=== PATIENT | male | born 2005 | race African-American/Black ===

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

== ENCOUNTER 2025-07-23 15:42 | Emergency (ER) | payer OTHER, SELFPAY ==
--- OUTSIDE RECORDS SUMMARY | 2025-07-23 15:44 | XMS_ITS | Clinical Summary ---
Author Organization [facility] Address [address] [place] [id number] Care Team Providers Care Editorial Specialist Name Role Phone Escobar Ramsey MD Primary Care Provider Escobar Ramsey MD Unavailable [phone] Allergies Active Allergy Reactions Criticality Noted Date Comments Penicillins Rash Medium 06/18/2019 Medications No known medications Active Problems No known active problems Immunizations Immunization Administration Dates Next Due DTaP 01/06/2007 DTaP / Hep B / IPV 04/29/2006,03/05/2006, 006 DTaP / IPV 06/18/2011 H1N1 All Forms 11/08/2009 HPV9 06/22/2018,07/07/2017 Hep A, Ped Unspecified 05/17/2007,11/01/2006 Hep B, Adolescent or Pediatric 2005 HiB 01/06/2007, 6,03/05/2006,12/03 Influenza, Quadrivalent, Spl it, Preservative Free, Intramuscular 07/26/2018 Influenza, Split 10/03/2012,12/09/2010 Influenza, Trivalent, Preser vative Free, Intramuscular 10/24/2013 Influenza, Unspecified 11/15/2007 MMRV 12/09/2010,11/01/2006 Meningococcal Conjugate (Menveo) 07/07/2017 Pneumococcal Conjugate 7-Valent 11/01/20 06,04/29/2006,03/05/2006,12/03 Tdap 07/07/2017 Medical History Medical History Date Comments Asthma Family History Medical History Relation Name Comments No Known Problems Father No Known Problems Mother Relation Name Status Comments Father Mother Social History Tobacco Use Types Packs/Day Years Used Date Smoking Tobacco: Never Passive Smoke Exposure: Never Smokeless Tobacco: Never Tobacco Cessation:Counseling Given: Not Answered Sex and Gender Information Value Date Recorded Sex Assigned at Not on file Legal Sex Male 10:45 AM CDT Gender Identity Not on file Sexual Orientation Not on file Obstetrics History Growth Chart Information Age Height Weight Qqmxnt-rvy-jzmu th Percentile BMI Percentile Head Circum Head Circum Percentile Date 18 years 180.3 cm (5' 11) 68 kg (150 lb) 32.57%* 2023 * [facility] (Boys, 2-20 Years) Last Filed Vital Signs Vital Sign Reading Time Taken Comments Blood Pressure 136/84 03/06/2024 9:58 AM CDT Pulse 51 03/06/2024 9:58 AM CDT Temperature - - Respiratory Rate 12 03/06/2024 9:58 AM CDT Oxygen Saturation - - Inhaled Oxygen Concentration - - Weight 68 kg (150 lb) 03/06/2024 9:58 AM CDT Pt states Height 180.3 cm (5' 11) 03/06/2024 9:58 AM CDT Pt states Body Mass Index 20.92 03/06/2024 9:58 AM CDT Body Mass Index Percentile 32.57% 03/06/2024 9:5 8 AM CDT Growth Chart: [facility] [place] (Boys, 2-2 0 Years) Plan of Treatment Health Maintenance Due Date Last Done Comments Depression Screening 2005 Hepatitis C Screening 2005 Regular Well Visit/Exam 18-64 2023 Meningococcal B Vaccine (2 o f 2 - Bexsero SCDM 2-dose series) 01/27/2024 07/28/2023 Influenza Vaccine (#1) 2025 8, 10/24/2013, 10/03/2012, Additional history exists DTaP/Tdap/Td Vaccine (7 - Td or Tdap) 07/07/2027 07/07/2017, 06/18/2011, 01/06/2007, Additional history exists Hepatitis B Screening Completed 04/29/2006 , 03/05/2006, 2005, Additional history exists Pneumococcal vaccine <65 Completed 006, 04/29/2006, 03/05/2006, Additional history exists Varicella Vaccines Completed 12/09/2010, 11/01/2006 HPV Vaccines Completed 06/22/2018, 07/07/2017 Meningococcal Vaccine Completed 07/28/2022, 017 Insurance [employer] Change Payments OPEN ACCESS [employer] OPEN ACCESS Care Teams Editorial Specialist Relationship Specialty Start Date End Date Escobar Ramsey MD [address] [place] [address] PCP - General Pediatrics 08/21/20 Escobar Ramsey MD [address] [place] [address] Pediatrics 08/21/20
--- OUTSIDE RECORDS SUMMARY | 2025-07-23 15:44 | XMS_ITS | Clinical Summary ---
Author Organization [facility] Address [address] [place] [address] Care Team Providers Care Farm Consultant Name Role Phone Kendrick Gibbons MD Primary Care Provider [phone] Source Comments [facility],non-owned Affiliates and Associated Physician Practices is amultiple site organization consisting of ambulatory clinics and hospital sitesin [place], [place] and [place]. This disclosure is being madepursuant to the Care Everywhere program and may not contain all information available regarding this patient. Last updated 18.[facility] Allergies Active Allergy Reactions Criticality Noted Date Comments Penicillins Rash Medium 06/18/2019 Medications * Be aware that medications may not be up to date on this document. Alwaysverify current medications with the patient. No known medications Active Problems No known active problems Social History Tobacco Use Types Packs/Day Years Used Date Smoking Tobacco: Never Smokeless Tobacco: Never Sex and Gender Information Value Date Recorded Sex Assigned at Not on file Legal Sex Male 7:41 PM CDT Gender Identity Not on file Sexual Orientation Not on file Last Filed Vital Signs Vital Sign Reading Time Taken Comments Blood Pressure 100/70 10/09/2019 11:42 AM CRIME SCENE INVESTIGATOR Pulse 90 06/18/2019 7:54 PM CDT Temperature 36.8 C (98.2 F) 06/18/2019 7:54 PM CDT Respiratory Rate 16 06/18/2019 7:54 PM CDT Oxygen Saturation 99% 06/18/2019 7:54 PM CDT Inhaled Oxygen Concentration - - Weight 59.9 kg (132 lb 0.9 oz) 10/09/20 19 11:42 AM CRIME SCENE INVESTIGATOR Height 173.2 cm (5' 8.19) 10/09/2019 1 1:42 AM CRIME SCENE INVESTIGATOR Body Mass Index 19.97 10/09/2019 11:42 AM CRIME SCENE INVESTIGATOR Body Mass Index Percentile 61.68% 10/09 11:42 AM CRIME SCENE INVESTIGATOR Growth Chart: CDC (Boys, 2-2 0 Years) Plan of Treatment Health Maintenance Due Date Last Done Comments HIV SCREENING 2020 HPV VACCINE (1 - Male 3-dose series) 2020 MENINGOCOCCAL (Group B) VACC INE SHARED DECISION-MAKING (1 of 2 - Standard) 2021 HEPATITIS C SCREENING 09/25/2023 COVID-19 VACCINE (1 - 2023-2 5 season) 2024 DTAP/TDAP/TD VACCINES (1 - Tdap) 2024 HEPATITIS B VACCINE (1 of 3 - 19+ 3-dose series) 2024 DEPRESSION SCREENING 11/29/2024 INFLUENZA VACCINE (#1) 2025 ZOSTER VACCINE (1 of 2) 2055 HIB VACCINE Aged Out No longer eligi ble based on patient's age to complete this topic MENINGOCOCCAL GROUPS A/C/Y/W VACCINE Aged Out No longer eligible b ased on patient's age to complete this topic PNEUMOCOCCAL VACCINE Aged Out No long er eligible based on patient's age to complete this topic Insurance Status [employer] MEDICAID - OUT OF STATE Care Teams Farm Consultant Relationship Specialty Start Date End Date Kendrick Gibobns MD PCP - General Family Medicine 10/03/21
[2025-07-23 15:49] VITALS: BP 133/77; PULSE 87; RESP 16; TEMP 36.4; O2SAT 100
[2025-07-23] MEDS: SODIUM CHLORIDE 0.9% IV 1,000 ML 999 ML IV CONT (18:05)
[2025-07-23 18:12] LABS: Hematocrit 50.2 % (42.0-52.0); Hemoglobin 16.4 g/dL (14.0-18.0); Immature Granulocyte Percent A 0.6 % (0-0.5); Lymphocytes Absolute Auto 1.13 K/mm3 (0.9-3.2); Mean Corpuscular HGB Conc 32.7 g/dl (32-36); Mean Corpuscular Hemoglobin 24.7 pg (26-34); Mean Corpuscular Volume 75.5 fl (80-100); Nucleated Red Blood Cells Absolute Auto 0.000 K/mm3 (0.0-0.012); Nucleated Red Blood Cells Perc 0.0 % (0.0-0.2); Platelet Count Result 299 k/mm3 (150-375); Red Blood Count 6.65 M/mm3 (4.6-6.20); White Blood Count 17.6 K/mm3 (4.5-10.0)
[2025-07-23 18:21] LABS: Add Urine Microscopic? YES; Appearance Urine Clear (Clear); Glucose Urine UA Negative (Negative); Leukocyte Esterase Ur Negative LEU/UL (Negative); Nitrate Urine Negative (Negative); Non Pathogenic Casts 0-2; Specific Grav Ur 1.023 (1.001-1.035)
[2025-07-23 18:23] LABS: Alanine Aminotransferase 38 U/L (6-50); Albumin Level 5.2 g/dL (3.7-5.6); Alkaline Phosphatase 88 U/L (58-237); Anion Gap 16 mmol/L (4-12); Aspartate Amino Transferase 57 U/L (17-59); Bilirubin,Total 1.2 mg/dL (0.2-1.3); Blood Urea Nitrogen 17 mg/dL (8-21); Calcium 10.2 mg/dL (8.9-10.7); Carbon Dioxide 23 mmol/L (22-30); Chloride 104 mmol/L (98-107); Estimated CRCL calculation 87 ml/min; Estimated Glomerular Filt Rate > 60; Glucose 83 mg/dL (65-110); Lipase 39 U/L (23-300); Potassium 4.3 mmol/L (3.4-5.0); Sodium 143 mmol/L (134-143); Total Protein 8.8 g/dL (6.3-8.6)
--- NOTE | 2025-07-23 18:46 | ED.NAVMDI ---
HPI - Nausea/Vomiting/Diarrhea General Chief complaint: Nausea/Vomiting/Diarrhea Stated complaint: n/v Time Seen by Provider: 07/23/25 17:52 Source: patient Mode of arrival: EMS Limitations: no limitations History of Present Illness HPI Narrative: This is a 19-year-old male that presents to the emergency department reporting he is hung over. Reports he drank chino last night. Has had nausea, vomiting, a headache today. Denies fevers, abdominal pain. Related Data Allergies Allergy/AdvReac Type Severity Reaction Status Date / Time Penicillins Allergy Rash Verified 07/23/25 16:01 Review of Systems Review of Systems: All systems reviewed & are unremarkable except as noted in HPI and below PMFSH Past Medical History Medical History Asthma Social History Social History Smoking status: Never smoker Second hand tobacco smoke exposure: No Gender identity (if verbalized by the patient): Male Exam Narrative: GENERAL: Well-appearing, well-nourished, and in no acute distress. HEAD: Normocephalic, atraumatic. EYES: EOMI. CHEST: Clear to auscultation. No respiratory distress. No wheezes rales or rhonchi HEART: Regular rate and rhythm. No murmur heard. Normal peripheral pulses. ABDOMEN: Soft, nontender, nondistended, normal active bowel sounds. EXTREMITIES: Normal range of motion. No edema. SKIN: Warm, dry, no rash. NEURO: No focal deficits. Alert and oriented x3. PSYCH: Normal mood and affect Course Vital Signs Vital signs: Vital Signs Temperature 97.6 F 07/23/25 15:49 Pulse Rate 87 07/23/25 15:49 Respiratory Rate 16 07/23/25 15:49 Blood Pressure 133/77 07/23/25 15:49 Pulse Oximetry 100 07/23/25 15:49 Oxygen Delivery Room Air 07/23/25 15:49 Temperature 97.6 F 07/23/25 15:49 Pulse Rate 87 07/23/25 15:49 Respiratory Rate 16 07/23/25 15:49 Blood Pressure 133/77 07/23/25 15:49 Pulse Oximetry 100 07/23/25 15:49 Oxygen Delivery Room Air 07/23/25 15:49 MDM - Nausea/Vomiting/Diarrhea MDM Narrative Medical decision making narrative: Patient presents the emergency department after drinking alcohol last night and reporting nausea, vomiting and a headache today. He is afebrile and nontoxic appearing. His vitals are stable. CBC with leukocytosis to 17.6, likely due to vomiting. Metabolic panel and urine with some evidence of dehydration, patient hydrated with a L of IV fluids in the ED with relief. His abdomen is soft and nontender. Tolerating p.o. challenge. He was instructed to abstain from alcohol. He was given warnings to return to the ER Differential Diagnosis Differential diagnosis: Likely gastroenteritis, drug-induced nausea and vomiting and dehydration Lab Data Attestation: I reviewed the patient's lab results. 07/23/25 18:04 07/23/25 18:04 Labs: Lab Results 07/23/25 Range/Units 18:04 WBC 17.6 H (4.5-10.0) K/mm3 RBC 6.65 H (4.6-6.20) M/mm3 Hgb 16.4 (14.0-18.0) g/dL Hct 50.2 (42.0-52.0) % MCV 75.5 L (80-100) fl MCH 24.7 L (26-34) pg MCHC 32.7 (32-36) g/dl RDW 15.0 H (11.5-14.5) % Plt Count 299 (150-375) k/mm3 MPV 9.6 (7.4-10.4) fl Immature Gran % (Auto) 0.6 H (0-0.5) % Neut % (Auto) 87.1 H (45.5-73.1) % Lymph % (Auto) 6.4 L (18.3-44.2) % Whitley % (Auto) 5.6 (2.6-8.5) % Eos % (Auto) 0.1 (0-4.4) % Baso % (Auto) 0.2 (0.2-1.2) % Lymph # (Auto) 1.13 (0.9-3.2) K/mm3 Whitley # (Auto) 1.0 H (0.1-0.6) K/mm3 Eos # (Auto) 0.0 (0-0.3) K/mm3 Baso # (Auto) 0.0 (0.0-0.1) K/mm3 Abs Immat Gran (auto) 0.10 H (0.00-0.031) K/mm3 Absolute Neuts (auto) 15.3 H (1.3-6.7) K/mm3 Absolute Nucleated RBC 0.000 (0.0-0.012) K/mm3 Nucleated RBC % 0.0 (0.0-0.2) % Sodium 143 (134-143) mmol/L Potassium 4.3 (3.4-5.0) mmol/L Chloride 104 (98-107) mmol/L Carbon Dioxide 23 (22-30) mmol/L Anion Gap 16 H (4-12) mmol/L BUN 17 (8-21) mg/dL Creatinine 1.11 (0.7-1.3) mg/dL Estim Creat Clear Calc 87 ml/min Estimated GFR > 60 (59 - ) Glucose 83 (65-110) mg/dL Calcium 10.2 (8.9-10.7) mg/dL Total Bilirubin 1.2 (0.2-1.3) mg/dL AST 57 (17-59) U/L ALT 38 (6-50) U/L Alkaline Phosphatase 88 (58-237) U/L Total Protein 8.8 H (6.3-8.6) g/dL Albumin 5.2 (3.7-5.6) g/dL Lipase 39 (23-300) U/L Urine Color Yellow (Yellow) Urine Appearance Clear (Clear) Urine pH 5.5 (5.0-9.0) Ur Specific [place] 1.023 (1.001-1.035) Urine Protein Trace (Negative) mg/dL Urine Glucose (UA) Negative (Negative) mg/dL Urine Ketones 2+ H (Negative) mg/dL Ur Blood (Man) Negative (Negative) Urine Nitrate Negative (Negative) Urine Bilirubin Negative (Negative) Urine Urobilinogen 1.0 (<2.0) mg/dL Leukocyte Esterase Rfl Negative (Negative) JEAN CLAUDE/UL Urine RBC 0-2 (0-2) /hpf Urine WBC 0-5 (0-3) /hpf Ur Squamous Epith Cells None seen (Few) /hpf Urine Bacteria None seen /hpf Urine Casts 0-2 Critical Care Time Critical Care Time Critical Care Time: No Discharge Plan Discharge Clinical Impression: Nausea and vomiting Qualifiers: Vomiting type: unspecified Qualified Code(s): R11.2 - Nausea with vomiting, unspecified Patient Disposition: Home Condition: Improved Instructions: Abuse of Alcohol (ED), Acute Nausea and Vomiting (ED) Additional Instructions: Return to the ER if you experience fever, abdominal pain with nausea and vomiting, you are unable to keep down liquids or solids, or any other symptoms that are concerning to you Small, frequent meals. [place] diet. Remain well hydrated Follow up with primary care doctor Patient Language: [place] Prescriptions: No Action naproxen 500 mg tablet 500 mg PO BID PRN (Reason: pain) 7 Days Qty: 14 0RF cyclobenzaprine 10 mg tablet 10 mg PO Q8H PRN (Reason: muscle spasm) 7 Days Qty: 21 0RF Follow-up/Referrals: PHYSICIAN,ULTIMATE HOOPS TRAINER [Non-Staff, Internal Medicine] David Santiago MD [Physician, Family Practice]
--- OUTSIDE RECORDS SUMMARY | 2025-07-23 18:50 | XMS_ITS | Clinical Summary ---
Author Organization [facility] Address [address] [place] [id number] Care Team Providers Care Welding Engineer Name Role Phone Escobra Ramsey MD Primary Care Provider Escobar Ramsey MD Unavailable [phone] Allergies Active Allergy Reactions Criticality Noted Date [...] History Growth Chart Information Age Height Weight [id number] th Percentile BMI Percentile Head Circum Head Circum Percentile Date 18 years 180.3 cm (5' 11) 68 kg (150 lb) 32.57%* 2023 * [facility] (Boys, 2-20 Years) Last Filed Vital Signs [...] 03/06/2024 9:5 8 AM CDT Growth Chart: [facility] (Boys, 2-2 0 Years) Plan of Treatment [...] 07/07/2017 Meningococcal Vaccine Completed 07/28/2022, 017 Insurance [employer] OPEN ACCESS [employer] OPEN ACCESS Care Teams Welding Engineer Relationship Specialty Start Date End Date Escobar Ramsey MD [address] [place] [address] PCP - General Pediatrics 08/21/20 Escobar Ramsey MD [address] [place] [address] Pediatrics 08/21/20
== END 2025-07-23 19:04 | disposition home or self-care (01) ==
PROVIDERS: Emergency Provider Physician Assistant; PCP Pediatrics
DX: R11.2 Nausea with vomiting, unspecified (principal); J45.909 Unspecified asthma, uncomplicated
CPT/HCPCS: 36415; 80053; 81001; 83690; 85025; 96360; 99283; J7030

== ENCOUNTER 2025-11-10 08:55 | Emergency (ER) | payer OTHER, SELFPAY ==
--- OUTSIDE RECORDS SUMMARY | 2025-11-10 08:57 | XMS_ITS | Clinical Summary ---
Author Organization [facility] Address [address] [place] [id number] Care Team Providers Care Advertising Job Titles Name Role Phone Escobar Ramsey MD Primary Care Provider Escobar Ramsey MD Unavailable [phone] Allergies Active Allergy Reactions Criticality Noted Date [...] Mass Index 20.92 03/06/2024 9:58 AM CDT Plan of Treatment Health Maintenance Due Date [...] 07/07/2017 Meningococcal Vaccine Completed 07/28/2022, 017 Insurance [employer] OPEN ACCESS [employer] OPEN ACCESS Care Teams Advertising Job Titles Relationship Specialty Start Date End Date Escobar Ramsey MD [address] [facility] [place] [address] PCP - General Pediatrics 08/21/20 Escobar Ramsey MD [address] [facility] [address] Pediatrics 08/21/20
[2025-11-10 09:02] VITALS: PULSE 75; RESP 15; TEMP 36.7; O2SAT 100
[2025-11-10 09:04] VITALS: BP 133/103
[2025-11-10] MEDS: TETANUS,DIPHTHERIA,AC PERTUSSIS ADULT (0.5 ML) BOOSTRIX IM (10:17)
[2025-11-10] MEDS: LIDOCAINE 1% LOCAL INJ 10 ML VIAL (10:17)
--- OUTSIDE RECORDS SUMMARY | 2025-11-10 10:23 | XMS_ITS | Clinical Summary ---
Author Organization [facility] Address [address] [place] [id number] Care Team Providers Care Trial Manager Name Role Phone Escobar Ramsey MD Primary Care Provider Escobar Ramsey MD Unavailable [phone] Allergies Active Allergy Reactions Criticality Noted Date [...] OPEN ACCESS [employer] OPEN ACCESS Care Teams Trial Manager Relationship Specialty Start Date End Date Escobar Ramsey MD [address] [facility] [place] [address] PCP - General Pediatrics 08/21/20 Escobar Ramsey MD [address] [facility] [place] [address] Pediatrics 08/21/20
--- NOTE | 2025-11-10 12:10 | ED_ITS ---
HPI - General Adult General Chief complaint: Wound/Laceration Stated complaint: R hand lac Time Seen by Provider: 11/10/25 09:56 History of Present Illness HPI narrative: patient 20-year-old gentleman who presents emergency department chief complaint of left hand laceration patient reports that last night around 10:00 p.m. he cut his right hand with a pair of shoes scissors between the thumb and index finger in the webspace the patient reports that he is unsure of his last tetanus shot reports that a continued bleeding and decided to come the emergency department as he was concerned that he may need sutures Related Data Allergies Allergy/AdvReac Type Severity Reaction Status Date / Time Penicillins Allergy Rash Verified 11/10/25 09:00 Review of Systems Review of Systems: A 10 system review of systems was completed on the patient and is negative except for what is stated in the HPI. Nursing and ancillary documentation was reviewed. [facility] Past Medical History Medical History Asthma Social History Social History Smoking status: Never smoker Second hand tobacco smoke exposure: No Gender identity (if verbalized by the patient): Male Exam Narrative: GENERAL: Well-appearing, well-nourished, and in no acute distress. HEAD: Normocephalic, atraumatic. EYES: PERRLA and EOMI. ENT: Nares clear, no rhinorrhea or epistaxis. Mucous membranes moist. NECK: Supple. CHEST: Clear to auscultation. No respiratory distress. HEART: Regular rate and rhythm. No murmur heard. Normal peripheral pulses. ABDOMEN: Soft, nontender, nondistended, normal active bowel sounds. EXTREMITIES: Normal range of motion. No edema. full range of motion of the hand no tendon deficit no numbness or tingling SKIN: Warm, dry, no rash. Laceration present in the webspace between the thumb and index finger 2 cm laceration NEURO: No focal deficits. Alert and oriented x3. PSYCH: Normal mood and affect. Course Vital Signs Vital signs: Vital Signs Temperature 36.7 C 11/10/25 09:02 Pulse Rate 75 11/10/25 09:02 Respiratory Rate 15 11/10/25 09:02 Pulse Oximetry 100 11/10/25 09:02 Temperature 36.7 C 11/10/25 09:02 Pulse Rate 75 11/10/25 09:02 Respiratory Rate 15 11/10/25 09:02 Blood Pressure 133/103 H 11/10/25 09:04 Pulse Oximetry 100 11/10/25 09:02 Procedures Laceration Laceration 1: Date: 11/10/25 Time: 12:10 Site: hand Side (If applicable): right Size (cm): 2 Description: irregular Depth: simple, single layer Local Anesthetic: lidocaine 1% Amount of anesthesia used (mL): 5 Pre-repair: wound explored, irrigated and irrigated extensively ====== Skin Level ====== Skin layer closed with: nylon Size (cm): 4-0 Number of sutures: 5 Technique: simple, interrupted ====== Subcutaneous Layer ====== ====== Muscle Layer ====== ====== Tendon Layer ====== MDM Differential Diagnosis Differential Diagnosis: laceration to right hand the patient's wound was 12 hours old but is clean and still having active bleeding it was explained to the patient this is higher risk for infection the wound was loosely approximated due to the age of the wound. The patient's tetanus was updated Discharge Plan Discharge Clinical Impression: Laceration of right hand Patient Disposition: Home Condition: Stable Instructions: Antibiotic Form, Laceration (ED) Additional Instructions: please have the sutures removed in 7-10 days. please watch for signs of infection if you develop redness swelling or pus draining from the wound please return to the emergency department Patient Language: German Prescriptions: No Action naproxen 500 mg tablet 500 mg PO BID PRN (Reason: pain) 7 Days Qty: 14 0RF cyclobenzaprine 10 mg tablet 10 mg PO Q8H PRN (Reason: muscle spasm) 7 Days Qty: 21 0RF Follow-up/Referrals: Rogerio Bishop MD [Physician, Family Practice] PHYSICIAN,AUTOMATIC GLOVE FORMER [Primary Care Provider, Internal Medicine] Time of Disposition: 12:15
== END 2025-11-10 12:40 | disposition home or self-care (01) ==
PROVIDERS: Emergency Provider Emergency Medicine
DX: S61.411A Laceration without foreign body of right hand, initial encounter (principal); Z23 Encounter for immunization; J45.909 Unspecified asthma, uncomplicated; W27.2XXA Contact with scissors, initial encounter
CPT/HCPCS: 12001; 90471; 90715; 99282; J2003

== ENCOUNTER 2025-11-18 14:34 | Emergency (ER) | payer OTHER, SELFPAY ==
[2025-11-18 14:35] VITALS: BP 147/89; PULSE 77; RESP 17; TEMP 36.7; O2SAT 100
--- OUTSIDE RECORDS SUMMARY | 2025-11-18 14:36 | XMS_ITS | Clinical Summary ---
Author Organization [facility] Address [address] [place] [phone] Care Team Providers Care Electronics Supervisor Name Role Phone Escobar Ramsey MD Primary Care Provider Escobar Ramsey MD Unavailable [phone] Allergies Active Allergy Reactions Criticality Noted Date [...] OPEN ACCESS [employer] OPEN ACCESS Care Teams Electronics Supervisor Relationship Specialty Start Date End Date Escobar Ramsey MD [address] [facility] [place] [address] PCP - General Pediatrics 08/21/20 Escobar Ramsey MD [address] [facility] [place] [address] Pediatrics 08/21/20
--- OUTSIDE RECORDS SUMMARY | 2025-11-18 14:36 | XMS_ITS | Clinical Summary ---
Author Organization [facility] Address [address] [facility] [place] [address] Care Team Providers Care Skates Operator Name Role Phone Kendrick Gibbons MD Primary Care Provider [phone] Source Comments [facility],non-owned Affiliates and Associated Physician Practices is amultiple site organization consisting of ambulatory clinics and hospital sitesin [place], [place], [place] and [place]. This disclosure is being madepursuant to the [...] Comments Blood Pressure 100/70 10/09/2019 11:42 AM EXPLOSIVE ORDNANCE TECHNICIAN Pulse 90 06/18/2019 7:54 PM CDT Temperature 36.8 C (98.2 F) 06/18/2019 7:54 PM CDT Respiratory Rate 16 06/18/2019 7:54 PM CDT Oxygen Saturation 99% 06/18/2019 7:54 PM CDT Inhaled Oxygen Concentration - - Weight 59.9 kg (132 lb 0.9 oz) 10/09/2019 11:42 AM EXPLOSIVE ORDNANCE TECHNICIAN Height 173.2 cm (5' 8.19) 10/09/2019 11:[address] Body Mass Index 19.97 10/09/2019 11:42 AM EXPLOSIVE ORDNANCE TECHNICIAN Plan of Treatment Health Maintenance Due Date Last Done Comments HIV SCREENING 2020 HPV VACCINE (1 - Male 3-dose series) 2020 MENINGOCOCCAL (Group B) VACC INE SHARED DECISION-MAKING (1 of 2 - Standard) 2021 HEPATITIS C SCREENING 09/25/2023 DTAP/TDAP/TD VACCINES (1 - Tdap) 2024 HEPATITIS B VACCINE (1 of 3 - 19+ 3-dose series) 2024 DEPRESSION SCREENING 11/29/2024 COVID-19 VACCINE (1 - 2024-2 6 season) 2025 INFLUENZA VACCINE (#1) 2025 ZOSTER VACCINE (1 of 2) 2055 HIB VACCINE Aged Out No longer eligi ble based on patient's age to complete this topic MENINGOCOCCAL GROUPS A/C/Y/W VACCINE Aged Out No longer eligible b ased on patient's age to complete this topic PNEUMOCOCCAL VACCINE Aged Out No long er eligible based on patient's age to complete this topic Insurance [place] [employer] MEDICAID - OUT OF STATE Care Teams Skates Operator Relationship Specialty Start Date End Date Kendrick Gibbons MD PCP - General Family Medicine 10/03/21
--- NOTE | 2025-11-18 14:49 | ED.GENADULT ---
HPI - General Adult General Chief complaint: Unspecified Stated complaint: suture removed Time Seen by Provider: 11/18/25 14:49 Source: patient Mode of arrival: ambulatory Limitations: no limitations History of Present Illness HPI narrative: This is a 20-year-old male that presents to the emergency department for suture removal. Had sutures placed to the right hand 8 days ago. No other concerns. Related Data Allergies Allergy/AdvReac Type Severity Reaction Status Date / Time Penicillins Allergy Rash Verified 11/10/25 09:00 Review of Systems Review of Systems: All systems reviewed & are unremarkable except as noted in HPI and below PMFSH Past Medical History Medical History Asthma Social History Social History Smoking status: Never smoker Second hand tobacco smoke exposure: No Gender identity (if verbalized by the patient): Male Exam Narrative: GENERAL: Well-appearing, well-nourished, and in no acute distress. HEAD: Normocephalic, atraumatic. EYES: EOMI. EXTREMITIES: Normal range of motion. No edema. Five sut[address] at the base of the right thumb between the thumb and index finger. No surrounding erythema or abnormal drainage. Appears well healing SKIN: Warm, dry, no rash. NEURO: No focal deficits. Alert and oriented x3. PSYCH: Normal mood and affect Course Vital Signs Vital signs: Vital Signs Temperature 98.1 F 11/18/25 14:35 Pulse Rate 77 11/18/25 14:35 Respiratory Rate 17 11/18/25 14:35 Blood Pressure 147/89 H 11/18/25 14:35 Pulse Oximetry 100 11/18/25 14:35 Oxygen Delivery Room Air 11/18/25 14:35 Temperature 98.1 F 11/18/25 14:35 Pulse Rate 77 11/18/25 14:35 Respiratory Rate 17 11/18/25 14:35 Blood Pressure 147/89 H 11/18/25 14:35 Pulse Oximetry 100 11/18/25 14:35 Oxygen Delivery Room Air 11/18/25 14:35 Procedures Foreign Body Removal Foreign Body #1: Foreign Body Removal Date: 11/18/25 Foreign Body Removal Time: 14:51 Site: hand Description of foreign body: other (Sutures) Sedation/Analgesia: none Technique: removal with forceps and other (scissors) Confirmed by:: direct visualization Complications: none Neurovascular: no change from pre-procedure MDM MDM Narrative Medical decision making narrative: Patient sutures were easily removed. Wound appears well healing. Follow-up with PCP as needed Differential Diagnosis Differential Diagnosis: Suture removal, wound check Critical Care Time Critical Care Time Critical Care Time: No Discharge Plan Discharge Clinical Impression: Visit for suture removal Patient Disposition: Home Condition: Stable Instructions: Stitches Removal (ED) Additional Instructions: Return to the emergency department if you experience fever, redness or swelling of your wound, abnormal drainage from your wound, or any other symptoms that are concerning to you. Apply antibiotic ointment daily. Do not soak the wound. Clean with mild soap and water daily Follow-up with primary care doctor as needed Patient Language: Yi Prescriptions: No Action naproxen 500 mg tablet 500 mg PO BID PRN (Reason: pain) 7 Days Qty: 14 0RF cyclobenzaprine 10 mg tablet 10 mg PO Q8H PRN (Reason: muscle spasm) 7 Days Qty: 21 0RF Follow-up/Referrals: PHYSICIAN,TECHNOLOGY DEVELOPMENT INTERN [Primary Care Provider, Internal Medicine] David Santiago MD [Physician, Family Practice]
== END 2025-11-18 15:10 | disposition home or self-care (01) ==
PROVIDERS: Emergency Provider Physician Assistant
DX: S61.401D Unspecified open wound of right hand, subsequent encounter (principal); J45.909 Unspecified asthma, uncomplicated; X58.XXXD Exposure to other specified factors, subsequent encounter
CPT/HCPCS: 15853; 99282

== ENCOUNTER 2025-11-28 10:52 | Emergency (ER) | payer OTHER, SELFPAY ==
[2025-11-28 11:04] VITALS: BP 133/88; PULSE 71; RESP 16; TEMP 37.1; O2SAT 100
[2025-11-28 11:17] LABS: EDUAAPPEAR Clear; EDUABILI Negative (Negative); EDUABLOOD Negative (Negative); EDUACOLOR1 Yellow; EDUAGLUCOSE Negative (Negative); EDUAKETONE Negative (Negative); EDUALEUKO Trace (Negative); EDUANITRATE Negative (Negative); EDUAPH 6.5; EDUAPROTEIN Negative (Negative); EDUASPGRAVITY 1.020; EDUAUROBILI 0.2
--- NOTE | 2025-11-28 11:19 | ED.MALEGU ---
HPI - Male Genitourinary General Chief complaint: Urogenital-Male Stated complaint: std testing Time Seen by Provider: 11/28/25 11:19 Source: patient Mode of arrival: ambulatory Limitations: no limitations History of Present Illness HPI Narrative: 20 yo M presents with c/o discharge from penis, burning with urination for 2 days. Multiple sex partners. Concerned for STI. All systems reviewed and negative except as noted above. Related Data Allergies Allergy/AdvReac Type Severity Reaction Status Date / Time Penicillins Allergy Rash Verified 11/28/25 11:01 [facility] Past Medical History Medical History Asthma Social History Social History Smoking status: Never smoker Second hand tobacco smoke exposure: No Gender identity (if verbalized by the patient): Male Comments At time of signature, agree with nursing past medical, surgical, social and family history. There is no relevant family history pertinent to the presenting complaint. Exam Narrative: GENERAL: This is a well-nourished, well-developed patient, in no apparent distress. HEAD: normocephalic, atraumatic. EYES: PERRL. Sclera clear/white. Vision is grossly intact. EARS: External ears normal NOSE: External nose normal NECK: Neck supple, non-tender without lymphadenopathy, masses or thyromegaly. CARDIOVASCULAR: Regular rate and rhythm without murmurs, gallops, or rubs. RESPIRATORY: Clear to auscultation. Breath sounds equal bilaterally. No wheezes, rales, or rhonchi. SKIN: warm, Dry, intact with no suspicious lesions or rash, good texture and turgor. NEURO: awake, alert, and oriented to person, place and time. There were no obvious focal neurologic abnormalities. EXTREMITIES: No joint tenderness, effusion, or edema noted. Course Course Level of Care: Express Care Visit Vital Signs Vital signs: Vital Signs Temperature 37.1 C 11/28/25 11:04 Pulse Rate 71 11/28/25 11:04 Respiratory Rate 16 11/28/25 11:04 Blood Pressure 133/88 11/28/25 11:04 Pulse Oximetry 100 11/28/25 11:04 Temperature 37.1 C 11/28/25 11:04 Pulse Rate 71 11/28/25 11:04 Respiratory Rate 16 11/28/25 11:04 Blood Pressure 133/88 11/28/25 11:04 Pulse Oximetry 100 11/28/25 11:04 reviewed MDM MDM Narrative Medical decision making narrative: treated with ceftriaxone and doxycycline today due to concern for STI. results pending. Differential Diagnosis Differential Diagnosis: Differential diagnostic considerations for male genitourinary issues include urinary tract infection, priapism, epididymitis, prostatitis, acute retention of urine, inguinal hernia, STI exposure, testicular torsion, Emilie?s gangrene. Lab Data Labs: Lab Results 11/28/25 Range/Units 11:06 POC Urine Color Yellow POC Urine Clarity Clear POC Urine pH 6.5 POC Ur Specif [place] 1.020 POC Urine Protein Negative (Negative) POC Ur Glucose (UA) Negative (Negative) POC Urine Ketones Negative (Negative) POC Urine Blood Negative (Negative) POC Urine Nitrite Negative (Negative) POC Urine Bilirubin Negative (Negative) POC Urine Urobilinogen 0.2 POC U Leukocyte Esteras Trace (Negative) Discharge Plan Discharge Clinical Impression: Concern about sexually transmitted disease in male without diagnosis, Dysuria Patient Disposition: Home Condition: Stable Instructions: Antibiotic Form, Chlamydia (ED), Gonorrhea (ED) Additional Instructions: Take antibiotic as prescribed until gone. Avoid all sexual activity until you know your test results. If you have a positive result, inform your partner. Patient Language: Latvian Prescriptions: New doxycycline hyclate 100 mg capsule 100 mg PO BID 7 Days Qty: 14 0RF Follow-up/Referrals: UNKNOWN,DOCTOR [Primary Care Provider] Time of Disposition: :
[2025-11-28] MEDS: cefTRIAXone 500 MG, LIDOCAINE 1% LOCAL INJ 1 ML IM (11:31)
[2025-11-28 19:55] LABS: Trichomonas Vag PCR NOT DETECTED (NOT DETECTE)
== END 2025-11-28 11:47 | disposition home or self-care (01) ==
PROVIDERS: Emergency Provider Nurse Practitioner Family
DX: Z11.3 Encounter for screening for infections with a predominantly sexual mode of transmission (principal); R30.0 Dysuria; R36.9 Urethral discharge, unspecified; R30.9 Painful micturition, unspecified; A54.09 Other gonococcal infection of lower genitourinary tract; J45.909 Unspecified asthma, uncomplicated
CPT/HCPCS: 81003; 87491; 87591; 87661; 96372; 99213; G0463; J0696; J2003